=== PATIENT | male | born 1945 | race Caucasian/White ===

== ENCOUNTER → 2016-05-27 | Outpatient (CLI) | payer MEDICARE, OTHER ==
[~2016-05-27] MED LIST: ASPIRIN E.C. 8181 MG PO; CIPRO500 M1 PO; DIFLUCAN100 M1 PO; GOOD SENSE IBU200 MG PO; NORCO 325 MG-51 TAB PO; PERCOCET 325 MG1 TA2 PO
== END ==
LOC: RAD 10:06
DX: R55 Syncope and collapse (principal); G93.89 Other specified disorders of brain
CPT/HCPCS: Q9967

== ENCOUNTER → 2016-06-14 | Outpatient (CLI) | payer MEDICARE, OTHER | LOC: CARDREHAB 08:34 | DX: R55 Syncope and collapse (principal); I10 Essential (primary) hypertension; Z79.82 Long term (current) use of aspirin | CPT/HCPCS: A9500 ==

== ENCOUNTER → 2016-06-18 | Outpatient (CLI) | payer MEDICARE, OTHER | LOC: VAS 16:16 | DX: R55 Syncope and collapse (principal); I34.0 Nonrheumatic mitral (valve) insufficiency ==

== ENCOUNTER 2017-02-17 22:33 | Emergency (ER) | payer MEDICARE, OTHER ==
[~2017-02-17] VITALS: Ht 180.3 cm; Wt 75.0 kg
[2017-02-17] MEDS ORDERED: LOPRESSOR 225 MG/TAB PO (22:51)
[2017-02-17] MEDS ORDERED: TEGRETOL200 M1 PO (22:51)
[2017-02-17] MEDS ORDERED: ZOCOR10 M1 PO (22:51)
[2017-02-17] MEDS ORDERED: LEVOTHYROXIN0.088 MG PO (22:52)
[2017-02-18 00:11] VITALS: BP 155/91
== END 2017-02-18 00:11 | disposition home or self-care (01) ==
LOC: ED 22:33
DX: K59.00 Constipation, unspecified (principal); I10 Essential (primary) hypertension; E78.5 Hyperlipidemia, unspecified; E07.9 Disorder of thyroid, unspecified

== ENCOUNTER 2017-12-17 20:47 | Emergency (ER) | payer MEDICARE, OTHER ==
[~2017-12-17 20:47] MED LIST changes: +LEVOTHYROXIN0.088 MG PO; +LOPRESSOR 225 MG/TAB PO; +TEGRETOL200 M1 PO; +ZOCOR10 M1 PO
[2017-12-17 21:26] LABS: EOS # 0.2 (0.04-0.40); EOS % 3.9 % (0.0-4.0); HEMATOCRIT 41.2 % (42.0-52.0); HEMOGLOBIN 13.9 g/dL (13.5-18.0); LYMPH# 2.1 (1.50-4.00); MEAN CELL VOLUME 87 fl (78-100); MEAN CORPUSCULAR HEMOGLOBIN 29 pg (27-31); MEAN CORPUSCULAR HGB CONC 34 g/dL (33-37); MEAN PLATELET VOLUME 9.3 fl (7.4-10.4); MONO # 0.5 (0.20-0.80); NEU # 3.1 (1.40-6.50); PLATELET COUNT 225 K/mm3 (130-400); RED BLOOD COUNT 4.74 M/mm3 (4.20-5.60); RED CELL DISTRIBUTION WIDTH 12.7 % (11.5-14.5)
[2017-12-17 21:38] LABS: ALBUMIN 3.9 g/dL (3.5-5.0); CALCIUM 9.5 mg/dL (8.4-10.2); POTASSIUM 4.2 mmol/L (3.6-5.0); TOTAL BILIRUBIN 0.3 mg/dL (0.2-1.3); TOTAL PROTEIN 6.8 g/dL (6.3-8.2)
[2017-12-17 22:00] VITALS: BP 147/76
== END 2017-12-17 22:00 | disposition home or self-care (01) ==
LOC: ED 20:47
PROVIDERS: Nurse Practitioner
DX: G40.909 Epilepsy, unspecified, not intractable, without status epilepticus (principal); Z87.820 Personal history of traumatic brain injury; Z79.82 Long term (current) use of aspirin; Z79.899 Other long term (current) drug therapy

== ENCOUNTER 2020-05-16 15:16 | Emergency (ER) | payer OTHER, MEDICARE ==
[~2020-05-16] VITALS: Ht 177.8 cm; Wt 75.3 kg
[2020-05-16 15:45] LABS: EOS # 0.1 (0.04-0.40); EOS % 1.6 % (0.0-4.0); HEMATOCRIT 39.5 % (42.0-52.0); HEMOGLOBIN 13.2 g/dL (13.5-18.0); LYMPH# 1.6 (1.50-4.00); MEAN CELL VOLUME 84 fl (78-100); MEAN CORPUSCULAR HEMOGLOBIN 28 pg (27-31); MEAN CORPUSCULAR HGB CONC 33 g/dL (33-37); MEAN PLATELET VOLUME 9.2 fl (7.4-10.4); MONO # 0.5 (0.20-0.80); NEU # 3.4 (1.40-6.50); PLATELET COUNT 276 K/mm3 (130-400); RED BLOOD COUNT 4.73 M/mm3 (4.20-5.60); RED CELL DISTRIBUTION WIDTH 11.9 % (11.5-14.5); WHITE BLOOD COUNT 5.6 K/mm3 (4.8-10.8)
[2020-05-16 15:52] LABS: ALBUMIN 3.7 g/dL (3.4-4.8); POTASSIUM 3.2 mmol/L (3.5-5.1)
[2020-05-16 15:53] LABS: CALCIUM 8.9 mg/dL (8.3-10.5)
[2020-05-16 15:55] LABS: TOTAL PROTEIN 6.8 g/dL (6.2-8.1)
[2020-05-16 15:56] LABS: TOTAL BILIRUBIN 0.5 mg/dL (0.2-1.2)
[2020-05-16] MEDS ORDERED: LEVOTHYROXINE100 MC1 PO (19:07)
[2020-05-16] MEDS ORDERED: PERIDEX473 ML MM (19:36)
[2020-05-16 19:41] LABS: URINE APPEARANCE CLEAR; URINE BILIRUBIN NEGATIVE (NEGATIVE); URINE BLOOD NEGATIVE (NEGATIVE); URINE COLOR YELLOW; URINE GLUCOSE NEGATIVE (NEGATIVE); URINE KETONE NEGATIVE (NEGATIVE); URINE LEUKOCYTE ESTERASE NEGATIVE (NEGATIVE); URINE NITRATE NEGATIVE (NEGATIVE); URINE PROTEIN(semi-quant) TRACE mg/dL (NEGATIVE); URINE UROBILINOGEN NORMAL (NORMAL); URINE WBC 0-1 /hpf (0-3)
[2020-05-16] MEDS ORDERED: AUGMENTIN 875-1 EAC1 PO (19:42)
[2020-05-16 19:55] VITALS: BP 146/80
== END 2020-05-16 19:55 | disposition home or self-care (01) ==
LOC: ED 15:16
PROVIDERS: Nurse Practitioner Family
DX: S01.511A Laceration without foreign body of lip, initial encounter (principal); S01.512A Laceration without foreign body of oral cavity, initial encounter; S01.81XA Laceration without foreign body of other part of head, initial encounter; I10 Essential (primary) hypertension; E03.9 Hypothyroidism, unspecified; E78.5 Hyperlipidemia, unspecified; G40.909 Epilepsy, unspecified, not intractable, without status epilepticus; Z79.82 Long term (current) use of aspirin; Z79.890 Hormone replacement therapy; V84 Occupant of special vehicle mainly used in agriculture injured in transport accident; Y92.79 Other farm location as the place of occurrence of the external cause
CPT/HCPCS: 90714; J7120; L0172

== ENCOUNTER → 2020-10-16 | Outpatient (CLI) | payer MEDICARE, OTHER ==
[~2020-10-16] MED LIST changes: +AUGMENTIN 875-1 EAC1 PO; +LEVOTHYROXINE100 MC1 PO; +PERIDEX473 ML MM
== END ==
LOC: RAD 11:06
DX: M79.89 Other specified soft tissue disorders (principal); M79.642 Pain in left hand

== ENCOUNTER → 2021-07-25 | Outpatient (CLI) | payer MEDICARE | LOC: VAS 13:58 → RAD 13:58 | DX: R06.02 Shortness of breath (principal) ==

== ENCOUNTER → 2022-08-02 | Outpatient (CLI) | payer MEDICARE, OTHER | LOC: VAS 10:44 → RAD 10:44 | DX: I77.810 Thoracic aortic ectasia (principal) ==